=== PATIENT | female | born 1985 | race Two or more races ===

== ENCOUNTER 2017-09-03 20:32 | Inpatient (IN) | payer MEDICAID ==
[2017-09-03] MEDS ORDERED: CARBOPROST 250 MCG INJ IM (22:00)
[2017-09-03] MEDS ORDERED: LIDOCAINE 1% (MPF) 30 ML INJ INJ (22:00)
[2017-09-03] MEDS ORDERED: IBUPROFEN 600 MG TAB PO (22:00)
[2017-09-03] MEDS ORDERED: METHYLERGONOVINE 0.2 MG INJ IM (22:00)
[2017-09-03] MEDS ORDERED: BUTORPHANOL 2 MG INJ IV (22:00)
[2017-09-03] MEDS ORDERED: OXYTOCIN 30 UNITS/LR 500 ML IV (22:00)
[2017-09-03] MEDS ORDERED: MISOPROSTOL 200 MCG TAB PR (22:00)
[2017-09-03 22:15] LABS: ADD MAN DIFF? NO
[2017-09-03 22:16] LABS: BASOPHILS % 0.1 % (0.0-2.0); EOSINOPHILS # 0.1 10^3/ul (0.0-0.5); EOSINOPHILS % 0.9 % (0.0-7.0); HEMATOCRIT 33.7 % (37.0-47.0); HEMOGLOBIN 11.6 g/dl (12.0-16.0); LYMPHOCYTES # 1.6 10^3/ul (0.8-2.9); LYMPHOCYTES % 16.3 % (15.0-51.0); MEAN CORPUSCULAR HEMOGLOBIN 30.9 pg (29.0-33.0); MEAN CORPUSCULAR HGB CONC 34.4 g/dl (32.0-37.0); MEAN CORPUSCULAR VOLUME 89.9 fl (82.0-101.0); MEAN PLATELET VOLUME 10.1 fl (7.4-10.4); MONOCYTE # 0.6 10^3/ul (0.3-0.9); MONOCYTES % 6.5 % (0.0-11.0); NEUTROPHIL # 7.5 10^3/ul (1.6-7.5); NEUTROPHILS % 75.9 % (39.0-77.0); PLATELET COUNT 171 10^3/UL (140-415); RED BLOOD COUNT 3.75 10^6/ul (4.20-5.40); RED CELL DISTRIBUTION WIDTH 12.6 % (11.5-14.5)
[2017-09-03 22:16] LABS: WHITE BLOOD COUNT 9.8 10^3/ul (4.8-10.8)
[2017-09-03] MEDS: LACTATED RINGER'S 1,000 ML IV (22:23)
[2017-09-03] MEDS: AMPICILLIN 2 GM/NS (PMX) 100 ML IV (22:23)
[2017-09-03 22:45] LABS: INR 0.91; PROTIME 12.3 Sec (11.9-14.9)
[2017-09-03 22:46] LABS: PARTIAL THROMBOPLASTIN TIME 25.8 Sec (25.0-35.0)
[2017-09-03 23:07] LABS: HEPATITIS B SURFACE ANTIGEN NEGATIVE (NEGATIVE)
[2017-09-03] MEDS ORDERED: FENTAnyl 2MCG/ML-ROPIV 0.2% 100 ML (23:22)
[2017-09-04] MEDS: OXYTOCIN 30 UNITS/LR 500 ML IV ×2 (00:02→00:14)
[2017-09-04] MEDS ORDERED: AMPICILLIN 1 GM/NS (PMX) 50 ML IV (02:00)
[2017-09-04] MEDS ORDERED: DIBUCAINE 1% 30 GM OINT PR (03:00)
[2017-09-04] MEDS ORDERED: METHYLERGONOVINE 0.2 MG INJ IM (03:00)
[2017-09-04] MEDS ORDERED: ACETAMINOPHEN 325 MG TAB PO (03:00)
[2017-09-04] MEDS ORDERED: MISOPROSTOL 200 MCG TAB PR (03:00)
[2017-09-04] MEDS ORDERED: OXYTOCIN 30 UNITS/LR 500 ML IV (03:00)
[2017-09-04] MEDS ORDERED: CARBOPROST 250 MCG INJ IM (03:00)
[2017-09-04] MEDS: LANOLIN 7 GM TUBE TOP (04:01)
[2017-09-04] MEDS: WITCH HAZEL/GLYCERIN PAD PR (05:11)
[2017-09-04] MEDS: IBUPROFEN 600 MG TAB PO ×3 (05:11→17:46)
[2017-09-04] MEDS: BENZOCAINE 20% 56 ML SPRAY TOP (05:12)
[2017-09-04] MEDS: LACTATED RINGER'S 1,000 ML IV* ×2 (05:15→10:42)
[2017-09-04] MEDS: SENNA/DOCUSATE NA (8.6MG/50MG) TAB PO ×2 (08:56→21:20)
[2017-09-04 15:08] LABS: RAPID PLASMA REAGIN NONREACTIVE (NR)
[2017-09-04] MEDS: HYDROCODONE/APAP (5/325) TAB PO (21:21)
[2017-09-04] MEDS: LACTATED RINGER'S 1,000 ML IV (22:00)
[2017-09-05] MEDS: IBUPROFEN 600 MG TAB PO ×4 (00:22→17:56)
[2017-09-05] MEDS: SENNA/DOCUSATE NA (8.6MG/50MG) TAB PO (08:45)
[2017-09-05] MEDS: HYDROCODONE/APAP (5/325) TAB PO (08:46)
[2017-09-05 09:48] LABS: ADD MAN DIFF? NO
[2017-09-05 10:02] LABS: WHITE BLOOD COUNT 8.1 10^3/ul (4.8-10.8)
[2017-09-05 10:02] LABS: BASOPHILS % 0.4 % (0.0-2.0); EOSINOPHILS # 0.2 10^3/ul (0.0-0.5); EOSINOPHILS % 2.5 % (0.0-7.0); HEMATOCRIT 31.4 % (37.0-47.0); HEMOGLOBIN 10.6 g/dl (12.0-16.0); LYMPHOCYTES # 1.7 10^3/ul (0.8-2.9); LYMPHOCYTES % 20.6 % (15.0-51.0); MEAN CORPUSCULAR HEMOGLOBIN 30.9 pg (29.0-33.0); MEAN CORPUSCULAR HGB CONC 33.8 g/dl (32.0-37.0); MEAN CORPUSCULAR VOLUME 91.5 fl (82.0-101.0); MEAN PLATELET VOLUME 10.9 fl (7.4-10.4); MONOCYTE # 0.4 10^3/ul (0.3-0.9); MONOCYTES % 5.5 % (0.0-11.0); NEUTROPHIL # 5.7 10^3/ul (1.6-7.5); NEUTROPHILS % 70.4 % (39.0-77.0); PLATELET COUNT 150 10^3/UL (140-415); RED BLOOD COUNT 3.43 10^6/ul (4.20-5.40)
[2017-09-06] MEDS ORDERED: DIPHTH/TET/ACEL PERTUSS (ADULT) 0.5 ML VIAL IM* (09:00)
== END 2017-09-05 20:15 | disposition home or self-care (01) | DRG 775 ==
LOC: OBT 20:32 → PP1 09-04 02:19 → L-D 20:36 → OBT 21:50 → L-D 21:57
PROVIDERS: Obstetrics & Gynecology
PROC: 10E0XZZ Delivery of Products of Conception, External Approach (ICD-10-PCS; principal; 2017-09-04)
PROC: 3E033VJ Introduction of Other Hormone into Peripheral Vein, Percutaneous Approach (ICD-10-PCS; 2017-09-04)
DX: O99.214 Obesity complicating childbirth (principal); Z68.42 Body mass index [BMI] 45.0-49.9, adult; E66.01 Morbid (severe) obesity due to excess calories; O60.14X0 Preterm labor third trimester with preterm delivery third trimester, not applicable or unspecified; Z3A.36 36 weeks gestation of pregnancy; Z37.0 Single live birth
CPT/HCPCS: 62319; 76815; 85025; 85610; 85730; 86592; 86900; 86901; 87340

== ENCOUNTER 2018-01-13 23:45 | Emergency (ER) | payer MEDICAID ==
[2018-01-14] MEDS: MECLIZINE 12.5 MG TAB PO (01:50)
[2018-01-14] MEDS: ONDANSETRON (ODT) 4 MG TAB ODT (01:50)
== END 2018-01-14 04:20 | disposition home or self-care (01) ==
LOC: FTE 23:45
DX: H81.10 Benign paroxysmal vertigo, unspecified ear (principal)
CPT/HCPCS: 70450; 99284-25

== ENCOUNTER 2018-10-13 16:43 | Emergency (ER) | payer MEDICAID ==
[2018-10-13] MEDS: ONDANSETRON (ODT) 4 MG TAB ODT (20:13)
[2018-10-13] MEDS: IBUPROFEN 600 MG TAB PO (20:27)
[2018-10-13] MEDS: MECLIZINE 12.5 MG TAB PO (20:27)
== END 2018-10-13 20:46 | disposition home or self-care (01) ==
LOC: FTE 16:43
DX: R42 Dizziness and giddiness (principal); R11.0 Nausea
CPT/HCPCS: 81025; 99283